=== PATIENT | female | born 1990 | race Two or more races ===

== ENCOUNTER 2018-03-25 22:14 | Emergency (ER) | payer SELFPAY ==
[~2018-03-25] VITALS: Ht 157.5 cm; Wt 70.3 kg
--- NOTE | 2018-03-25 22:59 | PHYS DOC ---
Past Medical History Past Medical History: Hypertension Past Surgical History: Alcohol Use: None Drug Use: None Adult General Chief Complaint Chief Complaint: ABDOMINAL PAIN HPI HPI Patient is a 27 year old female who presents with general abdominal pain. Patient began having diffuse abdominal pain several hours prior to presentation. She has no prior history of abdominal surgery other than hysterectomy. Pain is been constant since onset. She had some nausea and one episode of emesis described to be nonbloody. She denies urinary symptoms. Her last menstrual cycle was 10 days earlier. No prior history of similar symptoms. No fevers. No additional recent illness. Review of Systems Review of Systems Constitutional: Denies fever or chills Eyes: Denies change in visual acuity HENT: Denies nasal congestion or sore throat Respiratory: Denies cough or shortness of breath Cardiovascular: No additional information not addressed in HPI GI: Denies abdominal pain, nausea : Denies dysuria Musculoskeletal: Denies back pain Integument: Denies rash or skin lesions Neurologic: Denies headache Endocrine: Denies polyuria All other systems were reviewed and found to be within normal limits, except as documented in this note. Current Medications Current Medications Current Medications Medications (Trade) Dose Ordered Sig/Akiko Start Time Stop Time Status Last Admin Dose Admin Ceftriaxone Sodium 50 ml @ 100 mls/hr 1X ONCE 03/26/18 01:15 03/26/18 01:44 DC 03/26/18 01:29 100 MLS/HR Info (CONTRAST GIVEN -- Rx MONITORING) 1 each PRN DAILY PRN 03/25/18 23:15 03/26/18 02:17 DC Iohexol (Omnipaque 300 Mg/ml) 75 ml 1X ONCE 03/25/18 23:15 03/25/18 23:16 DC 03/25/18 00:05 75 ML Morphine Sulfate (Morphine Sulfate) 4 mg 1X ONCE 03/25/18 23:00 03/25/18 23:01 DC 03/25/18 23:08 4 MG Prochlorperazine Edisylate (Compazine) 10 mg 1X ONCE 03/25/18 23:00 03/25/18 23:01 DC 03/25/18 23:07 10 MG Sodium Chloride 1,000 ml @ 1,000 mls/hr 1X ONCE 03/25/18 23:00 03/25/18 23:59 DC 03/25/18 23:08 1,000 MLS/HR Allergies Allergies Allergies Coded Allergies Type Severity Reaction Last Updated Verified No Known Drug Allergies 10/07/15 No Physical Exam Physical Exam Constitutional: Well developed, well nourished, no acute distress, non-toxic appearance HENT: Normocephalic, atraumatic, bilateral external ears normal, oropharynx moist Eyes: PERRLA, EOMI, conjunctiva normal Neck: Normal range of motion, no tenderness Cardiovascular:Heart rate regular rhythm, no murmur Lungs & Thorax: Bilateral breath sounds clear Abdomen: Bowel sounds normal, soft, diffusely TTP but no guarding or rebound Skin: Warm, dry, no erythema Back: No tenderness Extremities: No tenderness Neurologic: Alert and oriented X 3 Psychologic: Affect normal Current Patient Data Vital Signs Vital Signs Date Time Temp Pulse Resp B/P (MAP) Pulse Ox O2 Delivery O2 Flow Rate FiO2 03/26/18 01:29 90 18 107/64 (78) 98 03/25/18 23:08 Room Air 03/25/18 22:30 98.3 98.3 Lab Values Laboratory Tests Test 03/25/18 22:36 03/25/18 23:43 03/25/18 23:50 White Blood Count 21.4 x10^3/uL (4.0-11.0) H Red Blood Count 4.85 x10^6/uL (3.50-5.40) Hemoglobin 14.1 g/dL (12.0-15.5) Hematocrit 42.0 % (36.0-47.0) Mean Corpuscular Volume 87 fL (79-100) Mean Corpuscular Hemoglobin 29 pg (25-35) Mean Corpuscular Hemoglobin Concent 34 g/dL (31-37) Red Cell Distribution Width 13.7 % (11.5-14.5) Platelet Count 290 x10^3/uL (140-400) Neutrophils (%) (Auto) 87 % (31-73) H Lymphocytes (%) (Auto) 7 % (24-48) L Monocytes (%) (Auto) 4 % (0-9) Eosinophils (%) (Auto) 1 % (0-3) Basophils (%) (Auto) 0 % (0-3) Neutrophils # (Auto) 18.6 x10^3uL (1.8-7.7) H Lymphocytes # (Auto) 1.6 x10^3/uL (1.0-4.8) Monocytes # (Auto) 0.9 x10^3/uL (0.0-1.1) Eosinophils # (Auto) 0.2 x10^3/uL (0.0-0.7) Basophils # (Auto) 0.1 x10^3/uL (0.0-0.2) Segmented Neutrophils % 77 % (35-66) H Band Neutrophils % 11 % (0-9) H Lymphocytes % 11 % (24-48) L Monocytes % 1 % (0-10) Platelet Estimate Adequate (ADEQUATE) Sodium Level 137 mmol/L (136-145) Potassium Level 3.6 mmol/L (3.5-5.1) Chloride Level 101 mmol/L (98-107) Carbon Dioxide Level 27 mmol/L (21-32) Anion Gap 9 (6-14) Blood Urea Nitrogen 23 mg/dL (7-20) H Creatinine 0.9 mg/dL (0.6-1.0) Estimated GFR (Cockcroft-Gault) 76.3 Glucose Level 107 mg/dL (70-99) H Calcium Level 9.2 mg/dL (8.5-10.1) Total Bilirubin 0.3 mg/dL (0.2-1.0) Direct Bilirubin 0.1 mg/dL (0.0-0.2) Aspartate Amino Transferase (AST) 18 U/L (15-37) Alanine Aminotransferase (ALT) 25 U/L (14-59) Alkaline Phosphatase 82 U/L (46-116) Total Protein 8.3 g/dL (6.4-8.2) H Albumin 4.0 g/dL (3.4-5.0) Lipase 121 U/L (73-393) POC Urine HCG, Qualitative Hcg negative (Negative) Urine Collection Type Clean catch Urine Color Yellow Urine Clarity Clear Urine pH 6.0 Urine Specific [place] >=1.030 Urine Protein Negative mg/dL (NEG-TRACE) Urine Glucose (UA) Negative mg/dL (NEG) Urine Ketones (Stick) Trace mg/dL (NEG) Urine Blood Negative (NEG) Urine Nitrite Negative (NEG) Urine Bilirubin Negative (NEG) Urine Urobilinogen Dipstick 0.2 mg/dL (0.2 mg/dL) Urine Leukocyte Esterase Moderate (NEG) Urine RBC 3-5 /HPF (0-2) Urine WBC 11-20 /HPF (0-4) Urine Squamous Epithelial Cells Occ /LPF Urine Bacteria Mod /HPF (0-FEW) Urine Trichomonas Present Laboratory Tests 03/25/18 22:36 Laboratory Tests 03/25/18 22:36 EKG EKG [] Radiology/Procedures Radiology/Procedures FINDINGS: Abdominal aorta is not aneurysmal. Intrauterine device is seen. No intrahepatic bile duct dilation. Liver is low-attenuation. Nonspecific but can be seen with fatty infiltration. Motion limits evaluation of pancreas. At the pancreatic tail region there is a tubular low-density fluid-filled structure seen measuring up to approximately 28 mm. Spleen unremarkable. No left-sided hydronephrosis. Urinary bladder largely decompressed. No right-sided hydronephrosis. No definite periappendiceal inflammation. IMPRESSION: 1. No evidence of bowel obstruction. 2. No hydronephrosis. 3. Tubular fluid-filled structures seen near the pancreatic tail. The most likely cause would be a loop of bowel coursing through the region with fluid within the lumen but would correlate with symptoms in the region and pancreatic enzymes to ensure that there is not an alternative cause such as a pseudocyst in the region which is considered to be a less likely cause.. Course & Med Decision Making Course & Med Decision Making Pertinent Labs and Imaging studies reviewed. (See chart for details) Patient was evaluated in the emergency department for some abdominal pain. She was found to have urinary tract infection. There was some nonspecific findings on CT scan documented above. The patient had no tenderness over the epigastric area. During the ED course, she received 2 doses of morphine. She was given 1 g of Rocephin. At discharge, the patient was entirely symptom free. She was provided a PO challenge which she tolerated very well. She is discharged home with medications for UTI and for nausea. She is encouraged to come back to the ER for any new or worsening symptoms. All of her questions were answered prior to discharge. The [employer] phone was used for interpretation. Dragon Disclaimer Dragon Disclaimer This electronic medical record was generated, in whole or in part, using a voice recognition dictation system. Departure Departure Disposition: HOME, SELF-CARE Condition: GOOD Referrals: NO PCP (PCP) Scripts Metoclopramide Hcl (REGLAN) 10 Mg Tablet 1 TAB PO TID PRN for NAUSEA/VOMITING, #10 TAB Prov: SAMIR BENSON DO 03/26/18 Nitrofurantoin Monohyd/M-Cryst (MACROBID 100 MG CAPSULE) 100 Mg Capsule 1 CAP PO BID, #20 CAP Prov: SAMIR BENSON DO 03/26/18 SAMIR BENSON DO Mar 25, 2018 22:58
[2018-03-25] MEDS ORDERED: IV NORMAL SALINE 1000ML BAG 1,000 ML IV ONE (23:00)
[2018-03-25] MEDS ORDERED: MORPHINE SULFATE 4 MG/ML VIAL. IV ONE (23:00)
[2018-03-25] MEDS ORDERED: PROCHLORPERAZINE 10 MG/2 ML VIAL. IV ONE (23:00)
[2018-03-25 23:05] LABS: BASO # 0.1 x10^3/uL (0.0-0.2); BASO % 0 % (0-3); EOS # 0.2 x10^3/uL (0.0-0.7); EOS % 1 % (0-3); HEMOGLOBIN 14.1 g/dL (12.0-15.5); LYMPH # 1.6 x10^3/uL (1.0-4.8); LYMPH % 7 % (24-48); MEAN CORPUSCULAR HEMOGLOBIN 29 pg (25-35); MEAN CORPUSCULAR HGB CONC 34 g/dL (31-37); MEAN CORPUSCULAR VOLUME 87 fL (79-100); MONO # 0.9 x10^3/uL (0.0-1.1); MONO % 4 % (0-9); NEUT # 18.6 x10^3uL (1.8-7.7); NEUT % 87 % (31-73); PLATELET COUNT 290 x10^3/uL (140-400); RED BLOOD COUNT 4.85 x10^6/uL (3.50-5.40); RED CELL DISTRIBUTION WIDTH 13.7 % (11.5-14.5); WHITE BLOOD COUNT 21.4 x10^3/uL (4.0-11.0)
[2018-03-25 23:13] LABS: CALCIUM 9.2 mg/dL (8.5-10.1); CREATININE 0.9 mg/dL (0.6-1.0); GFR 76.3; POTASSIUM 3.6 mmol/L (3.5-5.1)
[2018-03-25] MEDS ORDERED: IOHEXOL 300 MG/ML 100ML VIAL. IV ONE (23:15)
[2018-03-25] MEDS ORDERED: CONTRAST GIVEN. MC PRN (23:15)
[2018-03-25 23:19] LABS: DIRECT BILIRUBIN 0.1 mg/dL (0.0-0.2); TOTAL BILIRUBIN 0.3 mg/dL (0.2-1.0); TOTAL PROTEIN 8.3 g/dL (6.4-8.2)
[2018-03-25 23:41] LABS: % BANDS 11 % (0-9); % LYMPHS 11 % (24-48); % MONOS 1 % (0-10); % SEGS 77 % (35-66); PLT ESTIMATE ADEQUATE (ADEQUATE)
[2018-03-25 23:51] LABS: BILIRUBIN,URINE NEGATIVE (NEG); CLARITY,URINE CLEAR; COLOR,URINE YELLOW; NITRITE,URINE NEGATIVE (NEG); PROTEIN,URINE NEGATIVE (NEG-TRACE); UROBILINOGEN,URINE 0.2 mg/dL (0.2 mg/dL)
[2018-03-26 00:04] LABS: BACTERIA,URINE MOD /HPF (0-FEW); SQUAMOUS EPITHELIAL CELL,UR OCC /LPF; TRICHOMONAS,URINE PRESENT
--- NOTE | 2018-03-26 00:32 | RAD ---
INDICATION: ABD PAIN; OMNI 300, 75ML COMPARISON: None. TECHNIQUE: Axial CT images obtained through the abdomen and pelvis with contrast. One or more of the following individualized dose reduction techniques were utilized for this examination: 1. Automated exposure control; 2. Adjustment of the mA and/or kV according to patient size; 3. Use of iterative reconstruction technique. FINDINGS: Abdominal aorta is not aneurysmal. Intrauterine device is seen. No intrahepatic bile duct dilation. Liver is low-attenuation. Nonspecific but can be seen with fatty infiltration. Motion limits evaluation of pancreas. At the pancreatic tail region there is a tubular low-density fluid-filled structure seen measuring up to approximately 28 mm. Spleen unremarkable. No left-sided hydronephrosis. Urinary bladder largely decompressed. No right-sided hydronephrosis. No definite periappendiceal inflammation. IMPRESSION: 1. No evidence of bowel obstruction. 2. No hydronephrosis. 3. Tubular fluid-filled structures seen near the pancreatic tail. The most likely cause would be a loop of bowel coursing through the region with fluid within the lumen but would correlate with symptoms in the region and pancreatic enzymes to ensure that there is not an alternative cause such as a pseudocyst in the region which is considered to be a less likely cause.. Electronically signed by: Abhijeet Jackson MD (03/26/2018 12:29 AM) [id number]
[2018-03-26] MEDS ORDERED: METO10TA81 PO (01:35)
[2018-03-26] MEDS ORDERED: NITR100C62 PO (01:35)
[2018-03-26 01:45] VITALS: BP 101/52
== END 2018-03-26 01:41 | disposition home or self-care (01) ==
LOC: ER 22:14
DX: N39.0 Urinary tract infection, site not specified (principal); R11.2 Nausea with vomiting, unspecified; I10 Essential (primary) hypertension; Z90.710 Acquired absence of both cervix and uterus; Z98.890 Other specified postprocedural states
CPT/HCPCS: 36415; 74177; 80048; 80076; 81001; 81025; 83690; 85007; 85025; 96361; 96374; 96375; 99285; J0690; J0780; J2270; J7030; Q9967